=== PATIENT | female | born 1960 | race Caucasian/White ===

== ENCOUNTER 2020-10-09 01:45 | Inpatient (IN) | payer BC ==
[~2020-10-09] VITALS: Ht 167.6 cm; Wt 89.9 kg
[2020-10-09] VITALS (45 sets, daily range): BP systolic 87–143; BP diastolic 46–73
[2020-10-09] MEDS ORDERED: PLAVIX 75 MG TA75 MG PO (02:05)
[2020-10-09] MEDS ORDERED: NEURONTIN100 MG PO (02:09)
[2020-10-09] MEDS ORDERED: NORTRIPTYLINE H50 M3 PO (02:09)
[2020-10-09] MEDS ORDERED: ZESTRIL10 MG PO (02:11)
[2020-10-09] MEDS ORDERED: LIPITOR40 MG PO (02:12)
[2020-10-09] MEDS ORDERED: METFORMIN HCL500 M3 PO (02:12)
[2020-10-09] MEDS ORDERED: ASA81BEC PO (02:13)
[2020-10-09 02:28] LABS: ABSOLUTE BASOPHILS 0.1 thou/uL (0.0-0.2); ABSOLUTE EOSINOPHILS 0.2 thou/uL (0.0-0.7); ABSOLUTE LYMPHOCYTES 3.3 thou/uL (0.8-5.3); ABSOLUTE MONOCYTES 0.4 thou/uL (0.0-1.2); ABSOLUTE NEUTROPHILS 8.1 thou/uL (1.6-8.1); BASOPHILS 0.7 %; EOSINOPHILS 1.3 %; HEMATOCRIT 38.6 % (37.0-47.0); HEMOGLOBIN 13.2 gm/dL (12.0-15.0); LYMPHOCYTES 27.1 %; MCH 29.8 pg (26.0-34.0); MCHC 34.3 g/dL (28.0-37.0); MCV 86.9 fL (80.0-100.0); MONOCYTES 3.7 %; MPV 9.3 fl. (7.2-11.1); NUCLEATED RBCS 0 /100WBC; PLATELET COUNT* 349 thou/uL (150-400); POLYS 67.2 %; RBC 4.44 mil/uL (4.20-5.00); RDW-CV 13.1 % (10.5-14.5)
[2020-10-09 02:32] LABS: CALCIUM 9.2 mg/dL (8.5-10.1); CREATININE 0.9 mg/dL (0.6-1.3); POTASSIUM 3.7 mmol/L (3.5-5.1)
[2020-10-09 02:33] LABS: PROTIME 10.3 Seconds (9.20-11.50)
[2020-10-09 02:43] LABS: ALBUMIN 3.4 g/dL (3.4-5.0); TOTAL BILIRUBIN 0.5 mg/dL (<0.1-1.0); TOTAL PROTEIN 7.5 g/dL (6.4-8.2)
--- NOTE | 2020-10-09 06:35 | NUR ---
RECIEVED PT FROM [employer] SALES REPRESENTATIVE ARROUND 0415H TELE OVERFLOW. ALERT AND ORIENTED, NO CHEST PAIN. NO BLEEDING OR HEMATOMA AT RIGHT GROIN POST CATH SITE. FAMILY UPDATE GIVEN. PER DTR, PT HAD RIGHT CAROTID 90% OCCLUSION. CONTINUE MONITORING AND TOWARDS GOALS.
[2020-10-09] MEDS ORDERED: AMITRIPTYLINE H25 M4 (07:30)
[2020-10-09 08:30] LABS: HEMATOCRIT 35.1 % (37.0-47.0); HEMOGLOBIN 12.4 gm/dL (12.0-15.0); MCH 30.3 pg (26.0-34.0); MCHC 35.2 g/dL (28.0-37.0); MCV 86.1 fL (80.0-100.0); MPV 8.5 fl. (7.2-11.1); RBC 4.08 mil/uL (4.20-5.00); RDW-CV 13.2 % (10.5-14.5)
[2020-10-09 09:00] LABS: ANION GAP 10 mmol/L (7-16); BUN 18 mg/dL (7-18); CALCIUM 8.8 mg/dL (8.5-10.1); CHLORIDE 103 mmol/L (98-107); CHOLESTEROL 122 mg/dL (<200); CO2 26 mmol/L (21-32); CREATININE 0.7 mg/dL (0.6-1.3); GLUCOSE 119 mg/dL (70-99); HDL CHOLESTEROL 47 mg/dL (>40); LDL CHOLESTEROL 28 mg/dL (<100); SODIUM 139 mmol/L (136-145); TC:HDL 2.6 Ratio (Not establshd); TRIGLYCERIDE 236 mg/dL (<150); TROPONIN-I LEVEL <0.06 ng/mL (<0.06); VLDL 47 mg/dL (<40)
[2020-10-09 09:01] LABS: SERUM ASSESSMENT Clear
--- NOTE | 2020-10-09 10:06 | NUR ---
Patient admitted for Stemi. Cath and 1 stent this morning. Spoke with patient at bedside and introduced role of CM. Patient currently lives with dtr (Katerine; PH: [phone]) and son. Per patient she has not been able to walk x3 months and is wheelchair bound. 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 Per patient, she has been to 2 rehab facilities in the last 6 months. 3 months ago the patient was at [facility] and prior to that she was at [facility]. Patient states that she lives in the basement of her daughters house and her daughter and son both take care of her. Son does not work so when daugther goes to work son helps patient. Dtr works M-F and returns home at 11pm. Patient feels that she has adequate support at home and does not need any extra help. No hx of O2, bipap or cpap. No Hx of dialysis, BHS or infusion therapy. Plan for patient to return home at discharge. Tentative dc planned for tomorrow per Giovanni. Patient to go home with no needs.
--- NOTE | 2020-10-09 11:51 | CARD ---
[address] [address] CARDIAC CATH REPORT Name: LOWELL AUSTIN Room: [address] ADM IN .R.#: [id number] Admission: 10/09/20 Attend Phys: Jony Velazquez Discharge: Date of : 60 Report #: [id number] THIS REPORT FOR: cc: FAM - No family physician/PCP FAM - No family physician/PCP Andrew Davila MD [facility] ~ APPROVED REPORT Study performed: 10/09/2020 02:24:43 Patient Details Patient Status: ED Room #: 2 The patient is a 60 year-old female Event Personnel Andrew Davila Tray Service Worker, Todd Calderon Parks, Tina RN Monitor, Zenaida Dimas RN motorcoach driver Performed Art Access - R femoral artery* Left Heart Cath w/or w/o Coronaries C RACHANA Revasc AMI Total/Sub Single RCA AMIREVSING Hemostasis w/ Angioseal Indication Abnormal ECG, STEMI (>0 to less than or equal to 6 hours), Dyspnea Risk Factors Obesity, Cerebrovascular Disease, Hypercholesterolemia, Coronary Artery DiseaseHypertension, Diabetes Previous Procedures/Diagnoses Previous CVAPrevious PCI, Previous CO Admission/Lab Medications/Medications given during procedure Aspirin, Heparin Unfract. Procedure Narrative The patient was brought emergently to the Cardiac Catheterization Laboratory and was prepped and draped in a sterile manner. The right femoral was infiltrated with subcutaneous anesthesia. IV conscious sedation was used throughout procedure with appropriate monitoring and was performed in the presence of a registered nurse who was an independent trained observer other than the physician performing the [address] [address] CARDIAC CATH REPORT Name: DWAIN AUSTINNA Room: [address] IN [facility]#: [id number] Admission: 10/09/20 Attend Phys: Jony Velazquez Discharge: Date of : 60 Report #: [id number] procedure. A 6 Fr. Rhodes sheath was inserted into the right femoral artery. Coronary angiography was performed using coronary diagnostic catheters. The right coronary system was accessed and visualized with a Diagnostic JR4 catheter. The left coronary system was accessed and visualized with a Diagnostic JL4 catheter. The left ventricle was accessed and visualized with a 6Fr Pigtail Catheter catheter. Left ventricular/Aortic Valve gradient assessed via catheter pullback. Left ventriculogram was performed in HILL projection. Pre-demployment femoral angiogram was performed . Closure device was deployed with a 6 Fr Angioseal STS. The patient tolerated the procedure well and there were no complications associated with the procedure. There was no hematoma. Intraoperative Conscious Sedation Sedation start time: 03:09 Case end Time: 03:22 Fentanyl 75 mcg Dose: 723 mGy Contrast Type and Amount: Visipaque 120 ml Coronary Angiography The patient's coronary anatomy is right dominant. Diagnostic Cath Left Main 0% stenosis LAD 40% proximal and 70% mid stenosis Circumflex 50% proximal stenosis OM3 large vessel with 60% mid stenosis Right Coronary 50% proximal stenosis. A mid stent was noted that had a distal 90% edge restenosis Left Ventriculography The left ventricle is normal in size with normal contractility. The left ventricular ejection fraction is estimated to be 60-65%. Left ventricular wall motion abnormalities are not present. There is no mitral insufficiency. Hemodynamics The aortic pressure is 109/58 mmHg with a mean of 84 mmHg. The left ventricular pressure is 144/10 mmHg with a mean of mmHg. The left ventricular end diastolic pressure is 16 mmHg. There was no gradient across the aortic valve upon pullback. Pullback from the left ventricle to the aorta revealed no gradient [place] [address] CARDIAC CATH REPORT Name: LOWELL AUSTIN Room: [address] IN [facility].#: [id number] Admission: 10/09/20 Attend Phys: Jony Velazquez Discharge: Date of : 60 Report #: [id number] PCI Technique Lesion Anticoagulation was achieved with Heparin. Patient was preloaded with Plavix. Percutaneous coronary intervention was performed on the mid right coronary artery. The lesion stenosis prior to intervention was 90% with ALLYSON 3 flow. A 6Fr JR 4.0 SH Guide Catheter was used to engage the rca ostium. A IG: BMW 190cm Interventional Guidewire was used to cross the lesion. BALLOON DILATION A Balloon catheter Euphora SC 2.5x10 was inserted and inflated up to 14.00atm for 15seconds. Repeat angiography revealed the following post-dilatation results: 40% stenosis. STENT DEPLOYMENT A drug-eluting stent Jonas RX Stent 3.0X18mm was inserted and inflated up to 11.00atm for 14seconds. Repeat angiography revealed the following post-stent deployment results: 0% stenosis. Additional Inflation: 16.00atm for 22seconds. Final angiography reveals 0 % stenosis with ALLYSON 3 flow. Conclusion 1. 70% stenosis of the mid LAD 2. 60% stenosis of the 3rd marginal branch of the circumflex artery. 3. stent noted in the mid RCA that had a distal 90% edge restenosis. 4. LVEF 60-65% 5. successful placement of a drug eluting stent in the mid RCA Recommendations Consider stenting of the mid LAD for angina refractory to medical therapy. <ELECTRONICALLY SIGNED> By: Andrew Davila MD, [facility] 10/09/20 1151 1151 1151Davijony Davila MD, FACC /INF
--- NOTE | 2020-10-09 12:03 | EKG ---
[place] [address] ELECTROCARDIOGRAM REPORT Name: LOWELL AUSTIN Room: [address] ADM IN .R.#: [id number] Admission: 10/09/20 Attend Phys: Giovanni Pike Discharge: Date of : 60 Date of Service: 10/09/20 0148 Report #: [id number] THIS REPORT FOR: //name// [facility] ED Test Date: 2020-10-09 Test Time: 01:48:28 Pat Name: LOWELL AUSTIN Department: Room: [facility] Gender: F Carpentry Professional: ALEXANDRO : 1960 Requested By: Cecy Ledezma Order Number: [id number] MD: Michael Mendoza Measurements Intervals [place] Rate: 64 P: 36 AZ: 202 QRS: -28 QRSD: 102 T: 77 QT: 399 QTc: 412 Interpretive Statements Sinus rhythm Borderline prolonged AZ interval Possible inferior infarct, old Anterior infarct, old Lateral leads are also involved No previous ECG available for comparison Electronically Signed On 10-09-2020 12:02:52 CDT by Michael Mendoza [email or web address] <ELECTRONICALLY SIGNED> By: Michael Mendoza MD, FACC 10/09/20 1202 0148 0148 Michael Mendoza MD, [facility] /EPI
--- NOTE | 2020-10-09 12:05 | EKG ---
[place] [address] ELECTROCARDIOGRAM REPORT Name: LOWELL AUSTIN Room: [address] ADM IN M.R.#: [id number] Admission: 10/09/20 Attend Phys: Giovanni Pike Discharge: Date of : 60 Date of Service: 10/09/20 0952 Report #: [id number] THIS REPORT FOR: //name// [facility] Test Date: 2020-10-09 Test Time: 09:52:07 Pat Name: LOWELL AUSTIN Department: Room: [address] Gender: F Cloth Printing Back Tender: JOZEF : 1960 Requested By: Andrew Davila Order Number: [id number] Reading MD: Michael Mendoza Measurements Intervals [place] Rate: 69 P: 31 CA: 201 QRS: -23 QRSD: 98 T: 84 QT: 404 QTc: 433 Interpretive Statements Sinus rhythm Borderline left axis deviation Low voltage, extremity leads Abnormal inferior Q waves Consider anterior infarct Compared to ECG 10/09/2020 01:48:28 Low QRS voltage now present Inferior Q waves now present Q waves now present Myocardial infarct finding still present Electronically Signed On 10-09-2020 12:05:40 CDT by Michael Mendoza [email or web address] <ELECTRONICALLY SIGNED> By: Michael Mendoza MD, FAC 10/09/20 1205 0952 Michael Mendoza MD, [facility] /EPI
--- NOTE | 2020-10-09 16:36 | CON ---
[facility] [address] [place] [address] CONSULTATION Name: LOWELL AUSTIN Room: [address] ADM IN M.R.#: [id number] Admission: 10/09/20 Attend Phys: Jony Velazquez Discharge: Date of : 60 Report #: [id number] THIS REPORT FOR: cc: FAM - No family physician/PCP FAM - No family physician/PCP Andrew Davila MD [facility] ~ DATE OF CONSULTATION: 10/09/2020 CARDIOLOGY CONSULTATION HISTORY OF PRESENT ILLNESS: The patient is a 60-year-old single white female who came to the Emergency Room complaining of shortness of breath. The patient is cared for by Dr. Tiwari at [facility]. She used to live in [place]. She apparently had a stent placed at [facility] years ago for chest pain. She has done well since that time. However, she has had a previous stroke with left-sided hemiparesis and is basically wheelchair bound. She uses a diaper. She is unable to walk. She denies recent chest pain. She was doing well until this evening. She became short of breath and nauseated. She denies any fever. She has been coughing. Denies any edema. Denies any palpitations, syncope. Her daughter called the ambulance and an ECG showed evidence of acute inferior STEMI. I was asked to see her for further evaluation and treatment. PAST MEDICAL HISTORY: She has had no surgical procedures. She has a history of hypertension, diabetes, hyperlipidemia. MEDICATIONS: Include lisinopril, metformin, Lipitor, Plavix, aspirin. ALLERGIES: She has no known drug allergies. FAMILY HISTORY: Negative for heart disease. SOCIAL HISTORY: She is , lives with daughter in [place], [place]. Quit smoking years ago. No alcohol abuse. REVIEW OF SYSTEMS: No history of asthma, liver disease, kidney disease, cancer, psychiatric illness, chronic skin condition. PHYSICAL EXAMINATION: GENERAL: Revealed a middle-aged female, appeared in no acute distress. VITAL SIGNS: Her blood pressure is 120/70, pulse is 70, she is afebrile. HEENT: She was anicteric. Conjunctivae are pink. Mucosa moist. NECK: Neck veins do not appear distended. No carotid bruits. Neck supple. CHEST: Clear to auscultation. CARDIAC: Regular rate and rhythm. [place] [address] CONSULTATION Name: LOWELL AUSTIN Room: [address]#: [id number] Admission: 10/09/20 Attend Phys: Jony Velazquez Discharge: Date of : 60 Report #: [id number] ABDOMEN: Soft. EXTREMITIES: Had no edema. Dorsalis pedis pulse could not be palpated. SKIN: Cool and dry. NEUROLOGIC: Nonfocal. LABORATORY AND DIAGNOSTIC DATA: ECG showed a sinus rhythm with ST segment elevation in lead II, III and aVF. Her lab work, potassium is 3.7, creatinine 0.9. Liver function studies were normal. Troponin 0.06. BNP 120. White blood cell count 12.0, hemoglobin 13.2. Her COVID antigen stat test was negative. IMPRESSION AND RECOMMENDATIONS: 1. Acute inferior ST-elevation myocardial infarction. Recommend urgent cardiac catheterization. The patient's symptoms were shortness of breath. She was having no angina. 2. Hypertension. The patient is on CHELE inhibitor. 3. Diabetes. The patient is on metformin. 4. Hyperlipidemia. The patient is on Lipitor. 5. Previous stroke. The patient is basically wheelchair bound. I will continue Plavix. 6. Previous tobacco abuse. Critical care time was from 2:30 until 3:45 for total of 1 hour and 15 minutes. <ELECTRONICALLY SIGNED> By: Andrew Davila MD, FACC 10/09/20 1636 0238 0354Dhuong Davila MD, FACC /nt
[2020-10-10 00:51] VITALS: BP 124/59
[2020-10-10 04:22] LABS: HEMATOCRIT 30.9 % (37.0-47.0); HEMOGLOBIN 10.7 gm/dL (12.0-15.0); MCHC 34.7 g/dL (28.0-37.0); MCV 86.5 fL (80.0-100.0); RBC 3.57 mil/uL (4.20-5.00); RDW-CV 13.2 % (10.5-14.5); WBC 7.9 thou/uL (4.0-11.0)
[2020-10-10 04:25] LABS: CALCIUM 8.6 mg/dL (8.5-10.1); CHLORIDE 105 mmol/L (98-107); POTASSIUM 4.2 mmol/L (3.5-5.1); TROPONIN-I LEVEL <0.06 ng/mL (<0.06)
[2020-10-10 04:27] LABS: ANION GAP 8 mmol/L (7-16); BUN 19 mg/dL (7-18); CO2 26 mmol/L (21-32); CREATININE 0.6 mg/dL (0.6-1.3); GLUCOSE 92 mg/dL (70-99); SODIUM 139 mmol/L (136-145)
[2020-10-10 04:52] VITALS: BP 95/57
--- NOTE | 2020-10-10 06:45 | NUR ---
Transfered pt to room 101 from ICU at approx 2220. Pt is awake and oriented x4, with left sided weakness. Pt is not in distress, denies chest pain/discomfort. No acute changes this shift. Call light within reach. Hourly rounding done for pt safety. Fall precautions in place.
[2020-10-10 08:00] VITALS: BP 116/61
[2020-10-10] MEDS ORDERED: NITROGLYCERIN0.4 MG SUBLING (10:41)
[2020-10-10] MEDS ORDERED: COREG3.125 MG PO (10:41)
[2020-10-10 12:22] VITALS: BP 116/61
[2020-10-10 13:13] VITALS: BP 116/61
--- NOTE | 2020-10-10 13:55 | EKG ---
[place] [address] ELECTROCARDIOGRAM REPORT Name: LOWELL AUSTIN Room: [address] ADM IN ..#: [id number] Admission: 10/09/20 Attend Phys: Giovanni Pike Discharge: Date of : 60 Date of Service: 10/10/20 1315 Report #: [id number] THIS REPORT FOR: //name// [facility] Test Date: 2020-10-10 Test Time: 13:15:06 Pat Name: LOWELL AUSTIN Department: Room: [facility] Gender: F Neonatal Critical Care Nurse: JOZEF : 1960 Requested By: Anna Hernandez Order Number: [id number] Reading MD: Andrew Davila Measurements Intervals [place] Rate: 82 P: 14 CO: 194 QRS: -43 QRSD: 89 T: 65 QT: 364 QTc: 425 Interpretive Statements Sinus rhythm inferior infarction old Anterolateral infarct, old Compared to ECG 10/09/2020 09:52:07 Myocardial infarct finding still present Electronically Signed On 10-10-2020 13:55:30 CDT by Andrew Davila [email or web address] <ELECTRONICALLY SIGNED> By: Andrew Davila MD, [facility] 10/10/20 1355 1315 1315 Andrew Davila MD, [facility] /EPI
--- NOTE | 2020-10-10 15:54 | NUR ---
RECEIVED REPORT AROUND 0715. ASSUMED CARE. VS AND ASSESSMENT CHARTED. IV INTACT THIS AM. HEART MONITOR ATTACHED THIS AM AT SR. MEDS GIVEN PER MAY. HOURLY ROUNDING PERFORMED. DAUGHTER UPDATED ON FAMILY. DISCHARGE ORDERS RECEIVED. IV TAKEN OUT. HEART MONITOR OFF. DISCHARGE PACKET GIVEN TO PT. COMMUNICATED UNDERSTANDING. MEDS CALLED INTO HOME PHARMACY. PT LEFT VIA WHEEL CHAIR VAN SERVICE WITH ALL BELONGINGS OFF UNIT AT 1545.
== END 2020-10-10 15:42 | disposition home or self-care (01) | DRG 246 ==
LOC: M.ERS 01:45 → M.CL 02:32 → M.TBA-CV 02:32 → M.ICU 02:40 → M.ORTHSURG 22:19
PROVIDERS: Emergency Medicine; Family Medicine; Internal Medicine Cardiovascular Disease; ADMIT Internal Medicine; ATTEND Internal Medicine
PROC: B215YZZ Fluoroscopy of Left Heart using Other Contrast (ICD-10-PCS; principal; 2020-10-09)
PROC: B211YZZ Fluoroscopy of Multiple Coronary Arteries using Other Contrast (ICD-10-PCS; principal; 2020-10-09)
PROC: 4A023N7 Measurement of Cardiac Sampling and Pressure, Left Heart, Percutaneous Approach (ICD-10-PCS; principal; 2020-10-09)
PROC: 027034Z Dilation of Coronary Artery, One Artery with Drug-eluting Intraluminal Device, Percutaneous Approach (ICD-10-PCS; principal; 2020-10-09)
DX: T82.855A Stenosis of coronary artery stent, initial encounter (principal); I21.19 ST elevation (STEMI) myocardial infarction involving other coronary artery of inferior wall; I50.31 Acute diastolic (congestive) heart failure; I69.354 Hemiplegia and hemiparesis following cerebral infarction affecting left non-dominant side; E11.9 Type 2 diabetes mellitus without complications; E78.1 Pure hyperglyceridemia; I25.10 Atherosclerotic heart disease of native coronary artery without angina pectoris; E78.5 Hyperlipidemia, unspecified; Y83.8 Other surgical procedures as the cause of abnormal reaction of the patient, or of later complication, without mention of misadventure at the time of the procedure; Z20.822 Contact with and (suspected) exposure to COVID-19; Z79.01 Long term (current) use of anticoagulants; Z79.899 Other long term (current) drug therapy; Z79.84 Long term (current) use of oral hypoglycemic drugs; Z74.01 Bed confinement status; Y92.89 Other specified places as the place of occurrence of the external cause; I11.0 Hypertensive heart disease with heart failure

== ENCOUNTER 2020-11-13 09:05 | Emergency (ER) | payer BC ==
[~2020-11-13] VITALS: Ht 162.6 cm; Wt 117.9 kg
[~2020-11-13 09:05] MED LIST: AMITRIPTYLINE H25 M4; ASA81BEC PO; COREG3.125 MG PO; LIPITOR40 MG PO; METFORMIN HCL500 M3 PO; NEURONTIN100 MG PO; NITROGLYCERIN0.4 MG SUBLING; NORTRIPTYLINE H50 M3 PO; PLAVIX 75 MG TA75 MG PO; ZESTRIL10 MG PO
[2020-11-13] MEDS ORDERED: HYDROCHLOROTH12.5 M2 PO (10:57)
[2020-11-13] MEDS ORDERED: CARVEDILOL3.125 MG PO (11:00)
[2020-11-13 11:05] LABS: ABSOLUTE EOSINOPHILS 0.2 thou/uL (0.0-0.7); ABSOLUTE MONOCYTES 0.7 thou/uL (0.0-1.2); ABSOLUTE NEUTROPHILS 5.7 thou/uL (1.6-8.1); BASOPHILS 0.4 %; EOSINOPHILS 2.1 %; HEMATOCRIT 34.8 % (37.0-47.0); LYMPHOCYTES 23.1 %; MCH 29.6 pg (26.0-34.0); MCHC 34.6 g/dL (28.0-37.0); MCV 85.4 fL (80.0-100.0); MONOCYTES 8.2 %; MPV 9.3 fl. (7.2-11.1); NUCLEATED RBCS 0 /100WBC; PLATELET COUNT* 294 thou/uL (150-400); POLYS 66.2 %; RBC 4.07 mil/uL (4.20-5.00); RDW-CV 13.1 % (10.5-14.5); WBC 8.6 thou/uL (4.0-11.0)
[2020-11-13 11:46] LABS: CALCIUM 9.3 mg/dL (8.5-10.1); CREATININE 0.7 mg/dL (0.6-1.3); POTASSIUM 4.1 mmol/L (3.5-5.1)
[2020-11-13 11:48] LABS: PROTIME 10.4 Seconds (9.20-11.50)
[2020-11-13 11:50] LABS: ALBUMIN 3.4 g/dL (3.4-5.0); TOTAL BILIRUBIN 0.7 mg/dL (<0.1-1.0); TOTAL PROTEIN 7.6 g/dL (6.4-8.2)
[2020-11-13 17:20] VITALS: BP 110/53
== END 2020-11-13 17:25 | disposition short-term general hospital (02) ==
LOC: M.ERS 09:05
PROVIDERS: Family Medicine; Nurse Practitioner Family
DX: S06.5X0A Traumatic subdural hemorrhage without loss of consciousness, initial encounter (principal); Z20.822 Contact with and (suspected) exposure to COVID-19; S16.1XXA Strain of muscle, fascia and tendon at neck level, initial encounter; S00.83XA Contusion of other part of head, initial encounter; E11.9 Type 2 diabetes mellitus without complications; I10 Essential (primary) hypertension; I25.2 Old myocardial infarction; Z86.73 Personal history of transient ischemic attack (TIA), and cerebral infarction without residual deficits; Z79.899 Other long term (current) drug therapy; Z79.84 Long term (current) use of oral hypoglycemic drugs; Z79.82 Long term (current) use of aspirin; Z79.891 Long term (current) use of opiate analgesic; W06.XXXA Fall from bed, initial encounter; Y93.89 Activity, other specified; Y92.89 Other specified places as the place of occurrence of the external cause; Y99.8 Other external cause status

== ENCOUNTER 2020-12-03 13:16 | Inpatient (IN) | payer BC ==
[~2020-12-03] VITALS: Ht 162.6 cm; Wt 92.3 kg
[~2020-12-03 13:16] MED LIST changes: +CARVEDILOL3.125 MG PO; +HYDROCHLOROTH12.5 M2 PO
[2020-12-03 13:19] VITALS: BP 129/77
[2020-12-03] MEDS ORDERED: CYMBALTA20 MG PO (13:22)
[2020-12-03 13:35] LABS: ABSOLUTE BASOPHILS 0.1 thou/uL (0.0-0.2); ABSOLUTE EOSINOPHILS 0.1 thou/uL (0.0-0.7); ABSOLUTE LYMPHOCYTES 1.9 thou/uL (0.8-5.3); ABSOLUTE MONOCYTES 0.5 thou/uL (0.0-1.2); ABSOLUTE NEUTROPHILS 6.7 thou/uL (1.6-8.1); EOSINOPHILS 1.4 %; HEMATOCRIT 36.9 % (37.0-47.0); HEMOGLOBIN 12.4 gm/dL (12.0-15.0); LYMPHOCYTES 20.3 %; MCHC 33.7 g/dL (28.0-37.0); MCV 86.1 fL (80.0-100.0); MONOCYTES 5.1 %; MPV 8.3 fl. (7.2-11.1); NUCLEATED RBCS 0 /100WBC; PLATELET COUNT* 302 thou/uL (150-400); POLYS 72.2 %; RBC 4.28 mil/uL (4.20-5.00); RDW-CV 13.7 % (10.5-14.5); WBC 9.3 thou/uL (4.0-11.0)
[2020-12-03 13:46] LABS: CALCIUM 9.3 mg/dL (8.5-10.1); CREATININE 0.9 mg/dL (0.6-1.3); POTASSIUM 4.1 mmol/L (3.5-5.1)
[2020-12-03 13:56] LABS: ALBUMIN 3.6 g/dL (3.4-5.0); MAGNESIUM 1.7 mg/dL (1.8-2.4); TOTAL BILIRUBIN 0.4 mg/dL (<0.1-1.0); TOTAL PROTEIN 7.3 g/dL (6.4-8.2)
--- NOTE | 2020-12-03 14:56 | EKG ---
[place] [address] ELECTROCARDIOGRAM REPORT Name: LOWELL AUSTIN Room: [facility]#: [id number] Admission: 12/03/20 Attend Phys: Discharge: Date of : 60 Date of Service: 12/03/20 1319 Report #: [id number] THIS REPORT FOR: //name// [facility] ED Test Date: 2020-12-03 Test Time: 13:19:31 Pat Name: LOWELL AUSTIN Department: Room: Gender: Transverse Abdominal Muscle Surgeon: : 1960 Requested By: Sonido Dang Order Number: [id number] MD: Andrew Davila Measurements Intervals [place] Rate: 71 P: 30 ND: 196 QRS: -24 QRSD: 97 T: 115 QT: 402 QTc: 437 Interpretive Statements Sinus rhythm Borderline left axis deviation Borderline low voltage, extremity leads Abnormal R-wave progression, late transition Abnrm T, consider ischemia, anterolateral lds Compared to ECG 10/10/2020 13:15:06 Possible ischemia now present Myocardial infarct finding no longer present Electronically Signed On 12-03-2020 14:55:54 CDT by Andrew Davila [email or web address] <ELECTRONICALLY SIGNED> By: Andrew Davila MD, FAC 12/03/20 1455 1319 1319 Andrew Davila MD, FAC /EPI
[2020-12-03 18:30] VITALS: BP 100/56
[2020-12-03 18:39] VITALS: BP 153/78
[2020-12-03 21:00] VITALS: BP 111/68
[2020-12-04 00:29] VITALS: BP 110/56
[2020-12-04 05:02] VITALS: BP 148/78
[2020-12-04 05:24] LABS: ABSOLUTE EOSINOPHILS 0.2 thou/uL (0.0-0.7); ABSOLUTE LYMPHOCYTES 2.5 thou/uL (0.8-5.3); ABSOLUTE MONOCYTES 0.6 thou/uL (0.0-1.2); ABSOLUTE NEUTROPHILS 5.1 thou/uL (1.6-8.1); BASOPHILS 0.6 %; EOSINOPHILS 2.2 %; HEMATOCRIT 34.2 % (37.0-47.0); HEMOGLOBIN 11.6 gm/dL (12.0-15.0); LYMPHOCYTES 29.8 %; MCH 28.9 pg (26.0-34.0); MCV 85.1 fL (80.0-100.0); MONOCYTES 6.9 %; MPV 8.8 fl. (7.2-11.1); NUCLEATED RBCS 0 /100WBC; PLATELET COUNT* 288 thou/uL (150-400); POLYS 60.5 %; RBC 4.03 mil/uL (4.20-5.00); RDW-CV 13.7 % (10.5-14.5); WBC 8.5 thou/uL (4.0-11.0)
[2020-12-04 05:27] LABS: CALCIUM 9.3 mg/dL (8.5-10.1); CREATININE 0.7 mg/dL (0.6-1.3); POTASSIUM 3.6 mmol/L (3.5-5.1)
[2020-12-04 05:36] LABS: CHOLESTEROL 146 mg/dL (<200); HDL CHOLESTEROL 49 mg/dL (>40); LDL CHOLESTEROL 56 mg/dL (<100); TRIGLYCERIDE 205 mg/dL (<150); VLDL 41 mg/dL (<40)
[2020-12-04 05:40] LABS: SERUM ASSESSMENT Clear
--- NOTE | 2020-12-04 07:04 | NUR ---
PATIENT ARRIVED ON FLOOR FROM ER ABOUT 1845. PATIENT ADMISSION HISTORY AND ASSESSMENT WAS COMPLETED CHARTED. IV REMAINS SALINE LOCKED. PATIENT HAS HAD NO COMPLAINTS OF CHEST PAIN. PATIENT WAS GIVEN TYLENOL ONCE FOR HEADACHE. WILL CONTINUE TO MONITOR.
[2020-12-04 08:00] VITALS: BP 138/70
--- NOTE | 2020-12-04 10:24 | NUR ---
CM COMPLETED INITIAL ASSESSMENT TO [facility]IC[facility] HOME SITUATION AND DC NEEDS. PT LIVES IN HOME WITH DTR. SON COMES TO HOME IN THE AFTERNOON TO ASSIST WITH CARE NEEDS. PT RECEIVES ASSISTANCE WITH ADLS FROM CHILDREN. PT IS NON AMBULATORY. USE WC. [facility]. PT DC FROM [facility] "LAST THURSDAY." PT HAS USED [facility] 2X IN PAST, PT DOES NOT WANT HH SHE STATED "I HAVE TWO FOLDERS WITH EXERCISES" FROM PT, "MY DTR AND I DO THEM TOGETHER." PT INQUIRED ABOUT SNF. CM SPK TO [facility] TO GET PT EVAL, PER MARTITA, PT IS AT HER BASELINE. PT DTR WANTS TRAIN BY [facility] HOW TO DO COMPLETE TRANSFERS AND [facility]TS. CM TO CONT TO FOLLOW.
[2020-12-04 12:00] VITALS: BP 169/98
[2020-12-04 20:00] VITALS: BP 86/43
[2020-12-05 00:52] VITALS: BP 95/47
[2020-12-05 04:00] VITALS: BP 131/59
[2020-12-05 07:09] LABS: GLYCOHEMOGLOBIN (HGB A1C) 5.5 % (4.8-5.6)
[2020-12-05 08:00] VITALS: BP 122/67
[2020-12-05 12:00] VITALS: BP 123/74
--- NOTE | 2020-12-05 13:44 | CON ---
[address] [address] CONSULTATION Name: LOWELL AUSTIN Room: [address] ADM IN M.R.#: [id number] Admission: 12/03/20 Attend Phys: Preston Watkins MD Discharge: Date of : 60 Report #: [id number] THIS REPORT FOR: cc: [facility] - [facility] physician unknown [facility] - Clinic physician unknown Andrew Davila MD [facility] ~ DATE OF CONSULTATION: 12/03/2020 CARDIOLOGY CONSULTATION HISTORY OF PRESENT ILLNESS: The patient is a 60-year-old single white female who I was asked to see in the emergency room today after she complained of chest pain. The patient had a coronary stent placed at [facility] years ago. She presented to [place] this September with evidence of acute inferior STEMI. I performed urgent cardiac catheterization and she was found to have an edge restenosis of the stent in the right coronary artery with normal ejection fraction. I placed another stent. She was placed on Plavix. I saw her in followup in October. She was doing well until a few weeks ago when she fell out of her wheelchair and struck a coffee table with her head. She was brought here to [place] and found to have an intracerebral bleed. She was then transferred to [facility] where she was watched for 3 days. She was eventually discharged on her home medications. Since that time, she continues to have a headache. She also complained of back, chest and arm discomfort. She called EMS and brought to [facility] for further evaluation and treatment. She denied any shortness of breath, palpitations, syncope, fever or cough. PAST MEDICAL HISTORY: Significant for previous left carotid endarterectomy at [facility]. She has a history of hypertension, diabetes, and hyperlipidemia. She has had a previous stroke and basically confined to a wheelchair. CURRENT MEDICATIONS: Include Elavil, aspirin, Lipitor, carvedilol, Plavix, Neurontin, hydrochlorothiazide, insulin, Prinivil, metformin. ALLERGIES: She has no known drug allergies. FAMILY HISTORY: Her father and brother had stents. SOCIAL HISTORY: She is , lives with daughter in [place], [place]. No smoking. Rarely drinks alcohol. REVIEW OF SYSTEMS: No history of asthma, liver disease, kidney disease, cancer or chronic skin condition. She has anxiety disorder. PHYSICAL EXAMINATION: [place] [address] CONSULTATION Name: LOWELL AUSTIN Room: [address] IN [facility]#: [id number] Admission: 12/03/20 Attend Phys: Preston Watkins MD Discharge: Date of : 60 Report #: [id number] GENERAL: Revealed a middle-aged female, lying in bed. She appeared in no distress. VITAL SIGNS: Blood pressure is 110/60, pulse 60. She is afebrile. HEENT: She was anicteric. Conjunctivae pink. Mucous membranes moist. NECK: Veins not distended. No carotid bruits. NECK: Supple. CHEST: Clear to auscultation. HEART: Regular rate and rhythm without murmur. ABDOMEN: Obese. EXTREMITIES: Had no edema. Dorsalis pedis pulses 2+ bilaterally. SKIN: Cool and dry. NEUROLOGIC: Nonfocal. LABORATORY DATA: Her ECG showed a sinus rhythm with nonspecific T-wave changes. Her lab work, sodium 135, creatinine 0.9. High sensitivity troponin was 16. BNP 324. Hemoglobin 12.4. Her COVID antigen stat test was negative. The patient had a portable chest x-ray in the emergency room today that showed normal heart size, clear lung matias. IMPRESSION AND RECOMMENDATIONS: 1. Previous coronary stenting. Symptoms atypical for angina. Suspect noncardiac. Recommend no further cardiac evaluation. 2. Hypertension. The patient is on a beta remi, diuretic, CHELE inhibitor. 3. Hyperlipidemia. The patient is on a statin drug. 4. Diabetes. 5. Previous stroke with left carotid endarterectomy. The patient is basically confined to a wheelchair. 6. Back and headache. Possibly related to recent fall. 7. Recent intracerebral bleed following a fall. The patient was seen at and did not require therapy. She was released to resume aspirin and Plavix. <ELECTRONICALLY SIGNED> By: Andrew Davila MD, FACC 12/05/20 1344 1416 1740Daangie Davila MD, FACC /nt
--- NOTE | 2020-12-05 14:09 | NUR ---
CM spoke with Melinda at [facility], they have a SNF bed at their [place] location. Melinda spoke with Pt's dtr, dtr in agreement. Pt has had her first covid vaccine, is due to have her second shot on 12/13. CM faxed therapy evals. Pt does not qualify for the waiver, insurance auth should take, 24-48hrs, insurance auth initiated today. Pt medically stable to dc once ins auth received.
[2020-12-05 16:00] VITALS: BP 121/70
[2020-12-05 19:45] VITALS: BP 95/55
[2020-12-06 03:14] VITALS: BP 127/74
--- NOTE | 2020-12-06 04:26 | NUR ---
PT A&O X 4. ON RA. MEDS GIVEN ORDERED. NO C/O PAIN. PT INCONTINENT OF BLADDER. CALL LIGHT WITHIN REACH. WILL CONTINUE TO MONITOR.
[2020-12-06 06:01] VITALS: BP 125/72
[2020-12-06 08:00] VITALS: BP 147/88
[2020-12-06 08:43] VITALS: BP 147/88
--- NOTE | 2020-12-06 09:36 | NUR ---
Spoke with Pt and dtr, informed of Pt only have the 5 days of skilled left, both in agreement with discharging to home, dtr and son to assist at home. Pt declined HH, CM updated nurse. Ambulance to order picker and transport at 1pm.
--- NOTE | 2020-12-06 13:38 | NUR ---
patient discharged to home with ambulance in [facility] . all discharged instruction completed , IV line removed before discharge . No issue voiced at this time.
--- NOTE | 2020-12-12 08:41 | CON ---
[address] [address] CONSULTATION Name: LOWELL AUSTIN Room: [address] IN M.R.#: [id number] Admission: 12/03/20 Attend Phys: Preston Watkins MD Discharge: 12/06/20 Date of : 60 Report #: [id number] THIS REPORT FOR: cc: [facility] - Clinic physician unknown [facility] - Clinic physician unknown Nick Sigala MD ~ DATE OF CONSULTATION: 12/03/2020 HISTORY OF PRESENT ILLNESS: This is a 60-year-old female patient who has a pretty complicated history. She came here with a fall. She was found to have subdural. She was transferred to , did manage her conservatively and she was admitted at this time with the chest pain. It looks like acute subdural has resolved. She is going to be evaluated for chest pain by Cardiology. 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 She said she had a stroke in January of last year. She was in [facility]. I do not have any of those records. I do not know what the cause of that stroke was. She is complaining of some nonspecific headache and visual disturbances. She does not think she had any MIs in the past. She has a history of diabetes, chest pain and coronary artery disease, facial contusion and STEMI. This was a relevant 14-point review of system. PAST MEDICAL HISTORY: Positive for carotid endarterectomy and stroke. FAMILY HISTORY: Unremarkable. SOCIAL HISTORY: She is a former smoker. PHYSICAL EXAMINATION: GENERAL: She is obese. NEUROLOGIC: She is alert. She is responsive. She can follow simple commands. Cranial nerve examination is somewhat difficult to test, especially with the visual field. She does not have much strength on the left side. Her sensation is impaired on the left side. There is no meningeal sign. There is no carotid bruit. She is complaining mainly of the chest pain. CARDIORESPIRATORY: Mostly noncontributory. IMPRESSION: 1. History of prior stroke. 2. Headache also which is not very clear. Last sed rate was 36, which is not very high considering she is diabetic. We will just repeat the MRI in this patient and try to get her records from [facility] to see what kind of stroke she has. I suspect they must have held her aspirin and Plavix. Unfortunately, neurosurgeon do not come here and they are the one who decide when she can go back on antiplatelet. I discussed all of it in [place] [address] CONSULTATION Name: LOWELL AUSTIN Room: [address]#: [id number] Admission: 12/03/20 Attend Phys: Preston Watkins MD Discharge: 12/06/20 Date of : 60 Report #: [id number] spent more than 40 minutes of time taking care of this patient today and majority was spent counseling and coordinating. <ELECTRONICALLY SIGNED> By: Nick Sigala MD 12/12/20 [id number] Sigala MD /nt
== END 2020-12-06 13:15 | disposition home or self-care (01) | DRG 65 ==
LOC: M.ERS 13:16 → M.TBA-ER 15:17 → M.2W 15:17
PROVIDERS: Family Medicine; ADMIT Internal Medicine; ATTEND Internal Medicine
DX: I63.9 Cerebral infarction, unspecified (principal); E87.1 Hypo-osmolality and hyponatremia; Z20.822 Contact with and (suspected) exposure to COVID-19; E11.9 Type 2 diabetes mellitus without complications; E78.5 Hyperlipidemia, unspecified; R07.89 Other chest pain; I69.354 Hemiplegia and hemiparesis following cerebral infarction affecting left non-dominant side; I10 Essential (primary) hypertension; I25.2 Old myocardial infarction; Z87.891 Personal history of nicotine dependence; Z82.49 Family history of ischemic heart disease and other diseases of the circulatory system; Z79.82 Long term (current) use of aspirin; Z79.899 Other long term (current) drug therapy; Z95.5 Presence of coronary angioplasty implant and graft